=== PATIENT | female | born 1960 | race Caucasian/White ===

== ENCOUNTER 2023-06-23 18:43 | Inpatient (IN) | payer BC ==
[2023-06-23 19:19] LABS: BASOPHILS % (AUTO) 0.2 %; EOSINOPHILS # (AUTO) 0.1 10^3/uL (0.0-0.7); EOSINOPHILS % (AUTO) 0.4 %; HCT - HEMATOCRIT 37.4 % (37.0-47.0); HGB - HEMOGLOBIN 12.3 g/dL (12.0-16.0); LYMPHOCYTES # (AUTO) 1.9 10^3/uL (1.5-3.5); LYMPHOCYTES % (AUTO) 14.5 %; MEAN CORPUSCULAR HEMOGLOBIN 28.5 pg (27.0-31.0); MEAN CORPUSCULAR HGB CONC 32.9 g/dL (32.0-36.0); MEAN CORPUSCULAR VOLUME 86.6 fL (81.0-99.0); MEAN PLATELET VOLUME 9.8 fL (7.9-10.8); MONOCYTES # (AUTO) 0.8 10^3/uL (0.0-1.0); MONOCYTES % (AUTO) 6.4 %; NEUTROPHILS % (AUTO) 78.3 %; PLT - PLATELET COUNT 279 10^3/uL (130-450); RED BLOOD COUNT 4.32 10^6/uL (4.20-5.40); RED CELL DISTRIBUTION WIDTH 13.2 % (12.0-15.0); WHITE BLOOD COUNT 12.8 x10^3/uL (4.8-10.8)
[2023-06-23 19:41] LABS: ALBUMIN 4.4 g/dL (3.2-5.5); ALBUMIN/GLOBULIN RATIO 1.3 (1.0-2.2); BILIRUBIN,TOTAL 0.7 mg/dL (0.2-1.0); CALCIUM 10.1 mg/dL (8.5-10.3); CREATININE 0.9 mg/dL (0.6-1.3); POTASSIUM 3.8 mmol/L (3.5-4.5); TOTAL PROTEIN 7.7 g/dL (6.4-8.9)
[2023-06-23 19:42] LABS: TROPONIN I HIGH SENSITIVITY 5.7 ng/L (2.3-14.8)
--- NOTE | 2023-06-23 19:55 | XRAY Report ---
PROCEDURE: Chest 1V INDICATIONS: Chest pain TECHNIQUE: One view of the chest was acquired. COMPARISON: None. FINDINGS: Surgical changes and devices: None. Lungs and pleura: No pleural effusions or pneumothorax. Lungs are clear. Mediastinum: Mediastinal contours appear normal. Heart size is normal. Bones and chest wall: No suspicious bony lesions. Overlying soft tissues appear unremarkable. IMPRESSION: No acute cardiopulmonary process. Reviewed by: James Harry MD on 06/23/2023 7:54 PM PDT Approved by: James Harry MD on 06/23/2023 7:54 PM PDT Station ID: [id number]
--- NOTE | 2023-06-23 20:17 | ED Physician Documentation ---
History of Present Illness - Stated complaint Stated Complaint: UPPER ABD PX/BODY ACHES - Chief complaint Chief Complaint: General - Additonal information Additional information: Patient 62-year-old female presenting to the emergency department with abdominal and back pain. Reports pain began initially earlier this morning. Has had similar episode pain in the past. Reports an episode of pancreatitis that was attributed to gallstones a few years ago and has had her gallbladder removed. Infrequent drinker. Is a type II diabetic. Review of Systems Constitutional: reports: Weight Loss. denies: Fever Eyes: denies: Loss of vision Ears: denies: Loss of hearing Nose: denies: Rhinorrhea / runny nose Throat: denies: Dental pain / toothache Cardiac: denies: Chest pain / pressure Respiratory: denies: Dyspnea GI: reports: Abdominal Pain, Nausea : denies: Dysuria Skin: denies: Rash Musculoskeletal: denies: Neck pain PD PAST MEDICAL HISTORY - Past Medical History Past Medical History: Yes Cardiovascular: Hypertension Endocrine/Autoimmune: Type 1 diabetes GI: GERD, Pancreatitis : Kidney stones - Past Surgical History Past Surgical History: Yes General: Cholecystectomy - Allergies Allergies/Adverse Reactions: Allergies Allergy/AdvReac Type Severity Reaction Status Date / Time rosuvastatin [From Crestor] Allergy Unknown Verified 06/23/23 18:57 - Social History Does the pt smoke?: No Smoking Status: Former smoker Does the pt drink ETOH?: No Does the pt have substance abuse?: No PD ED PE NORMAL - General General: Alert and oriented X 3, No acute distress - HEENT HEENT: Atraumatic - Neck Neck: Supple, no meningeal sign - Cardiac Cardiac: RRR - Respiratory Respiratory: No respiratory distress - Abdomen Abdomen: No: Non tender (Epigastric tenderness) - Back Back: No CVA TTP, No spinal TTP - Derm Derm: Normal color - Extremities Extremities: No deformity - Neuro Neuro: Alert and oriented X 3, 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, No motor deficit, Normal speech Results - Vitals Vitals: Vital Signs - 24 hr 06/23/23 06/23/23 06/23/23 18:48 19:23 20:50 Temperature 36.6 C Heart Rate 115 H 108 H 108 H Respiratory 20 18 18 Rate Blood Pressure 138/76 H 147/86 H O2 Saturation 99 100 95 06/23/23 23:00 Temperature Heart Rate 106 H Respiratory 18 Rate Blood Pressure 147/93 H O2 Saturation 97 Oxygen O2 Source Room air - Labs Labs: Laboratory Tests 06/23/23 06/23/23 06/23/23 19:13 19:13 19:13 WBC 12.8 H RBC 4.32 Hgb 12.3 Hct 37.4 MCV 86.6 MCH 28.5 MCHC 32.9 RDW 13.2 Plt Count 279 MPV 9.8 Neut # (Auto) 10.0 H Lymph # (Auto) 1.9 Sully # (Auto) 0.8 Eos # (Auto) 0.1 Baso # (Auto) 0.0 Absolute Nucleated RBC 0.00 Nucleated RBC % 0.0 Sodium 135 Potassium 3.8 Chloride 99 L Carbon Dioxide 29 Anion Gap 7.0 BUN 25 H Creatinine 0.9 Estimated GFR (MDRD) 64 L Glucose 382 H Calcium 10.1 Total Bilirubin 0.7 AST 559 H ALT 317 H Alkaline Phosphatase 170 H Troponin I High Sens 5.7 Total Protein 7.7 Albumin 4.4 Globulin 3.3 Albumin/Globulin Ratio 1.3 Triglycerides Cholesterol LDL Cholesterol Direct LDL Cholesterol, Calc VLDL Cholesterol HDL Cholesterol LDL/HDL Ratio dLDL/HDL Ratio Cholesterol/HDL Ratio Lipase 2237 H Ethyl Alcohol < 10.0 06/23/23 19:13 WBC RBC Hgb Hct MCV MCH MCHC RDW Plt Count MPV Neut # (Auto) Lymph # (Auto) Sully # (Auto) Eos # (Auto) Baso # (Auto) Absolute Nucleated RBC Nucleated RBC % Sodium Potassium Chloride Carbon Dioxide Anion Gap BUN Creatinine Estimated GFR (MDRD) Glucose Calcium Total Bilirubin AST ALT Alkaline Phosphatase Troponin I High Sens Total Protein Albumin Globulin Albumin/Globulin Ratio Triglycerides 446 H Cholesterol 212 H LDL Cholesterol Direct 121 LDL Cholesterol, Calc Not Reportable VLDL Cholesterol Not Reportable HDL Cholesterol 39 L LDL/HDL Ratio Not Reportable dLDL/HDL Ratio 3.1 Cholesterol/HDL Ratio 5.4 Lipase Ethyl Alcohol PD Medical Decision Making - ED course Complexity details: considered differential, d/w patient ED course: Patient 62-year-old female presenting to the emergency department with chief complaint abdominal pain. Pain ongoing x 1 day. Subsequently identified as having acute pancreatitis with lipase greater than 2400. Elevation in LFTs is noted but no elevation in bilirubin. Given medication for pain control, IV hydration. A CT abdomen pelvis obtained demonstrates some possible choledocholithiasis although patient has had her gallbladder removed. Ultrasonography does not show any clear obstruction though does demonstrate mild dilatation to the gallbladder. Her care is discussed with the hospitalist service who graciously agreed to hospitalize for further evaluation and treatment. Departure - Departure Disposition: 67 [facility] DC/[facility] Clinical Impression: Acute pancreatitis Forms: PCP List
[2023-06-23] MEDS: HYDROmorphone 1 MG/ML CARPUJECT IVP STA ×2 (20:21→22:45)
[2023-06-23] MEDS: ONDANSETRON 4 MG/2 ML VIAL IVP STA (20:21)
[2023-06-23] MEDS: SODIUM CHLORIDE 0.9% 1,000 ML IV STA (20:22)
[2023-06-23 20:47] LABS: CHOL/HDL RATIO 5.4 (<4.4); CHOLESTEROL 212 mg/dL; HDL CHOLESTEROL 39 mg/dL; TRIGLYCERIDES 446 mg/dL (48-352)
[2023-06-23] MEDS ORDERED: iohexoL-300 100 ML VIAL ONE (20:58)
[2023-06-23 21:03] LABS: LDL CHOLESTEROL,DIRECT 121 mg/dL (75-193); LDLD/HDL RATIO 3.1 (<4.4)
[2023-06-23] MEDS: iohexoL-300 100 ML VIAL IVP ONE (21:24)
--- NOTE | 2023-06-23 22:46 | CT Report ---
PROCEDURE: Abdomen/Pelvis W INDICATIONS: abd pain, pancreatitis, s/p Cholecystectomy, Wt ls CONTRAST: omni 300,100mls TECHNIQUE: After the administration of intravenous contrast, a CT scan of the abdomen and pelvis was performed. Images were recorded and evaluated at appropriate window settings. Reformats: coronal and sagittal. F or radiation dose reduction, the following was used: automated exposure control, adjustment of mA and /or kV according to patient size. COMPARISON: None. FINDINGS: Image quality: Diagnostic. Lower chest: Unremarkable. Liver: Mild hepatomegaly and hepatic steatosis. No solid mass. Gallbladder and biliary tree: Gallbladder is surgically absent. Question small intraductal stones in the common bile duct. Mild biliary dilation. Spleen: No splenomegaly. Pancreas: No pancreatic ductal dilation. Adrenals: No adrenal nodule. Kidneys and ureters: No hydronephrosis. No renal cystic lesion which requires follow up. No solid mas s. Mild perinephric stranding. Bilateral retroperitoneal lipomatosis. Stomach, bowel and peritoneum: No bowel distension. No pathologic free fluid. Scattered colonic diver ticula. No acute diverticulitis. Lymph nodes: No central or retroperitoneal adenopathy. Vessels: No infrarenal aortic aneurysm. PELVIS Reproductive organs: Unremarkable. Bladder: No abnormal wall thickening, accounting for underdistention. Pelvic lymph nodes: No pelvic adenopathy by size criteria. Bones: No aggressive osseous abnormality. Other: No significant ventral or inguinal hernia. There is a subcutaneous stranding anterior abdomina l wall. IMPRESSION: 1. Cholelithiasis. Question small common bile duct stones. Mild biliary dilation. Consider MRCP for f ollow-up evaluation. 2. Mild hepatomegaly and hepatic steatosis. 3. Pancreas has normal CT appearance, which does not exclude clinical pancreatitis. 4. Diverticulosis without diverticulitis. Reviewed by: Cameron Haddad MD on 06/23/2023 10:45 PM PDT Approved by: Cameron Haddad MD on 06/23/2023 10:45 PM PDT Station ID: [id number]
--- NOTE | 2023-06-24 00:16 | Ultrasound Report ---
PROCEDURE: Abdomen Limited INDICATIONS: RUQ, abd pain TECHNIQUE: Real-time focused scanning was performed of the abdomen, with image documentation. COMPARISONS: CT abdomen and pelvis, 06/23/2023. FINDINGS: Liver: Liver is normal in size and demonstrates diffuse increased echotexture. Gallbladder: Surgically absent. Biliary ducts: Intrahepatic bile ducts are non-dilated. Extrahepatic bile duct caliber measures 10. 3 mm. Normal is 6-7 mm or less in diameter, or 10 mm or less post-cholecystectomy. Pancreas: Visualized portions of the pancreas are sonographically normal. Right kidney: Normal in size and echotexture. Right kidney measures 11.9 cm long. No hydronephrosis or nephrolithiasis. No solid masses. There is a 1.4 cm simple appearing cyst in the inferior pole of the right kidney. No complex renal cystic lesions which require follow-up. Aorta: Visualized aorta is normal in caliber at less than 3 cm. IVC: Intrahepatic inferior vena cava is patent. Miscellaneous: No free abdominal fluid. IMPRESSION: 1. Diffuse increased hepatic echotexture consistent with hepatic fatty infiltration. Other hepatocell ular disease could have a similar appearance. Please correlate with liver function tests. 2. Dilated common bile duct. No definitive intraductal stones. Reviewed by: Cameron Haddad MD on 06/24/2023 12:15 AM PDT Approved by: Cameron Haddad MD on 06/24/2023 12:15 AM PDT Station ID: [id number]
[2023-06-24] MEDS ORDERED: oxyCODONE 5 MG TABLET PO PRN (01:08)
[2023-06-24] MEDS ORDERED: ONDANSETRON 4 MG/2 ML VIAL IVP PRN (01:08)
[2023-06-24] MEDS ORDERED: PROCHLORPERAZINE 10 MG/2 ML VIAL IVP PRN (01:08)
[2023-06-24] MEDS ORDERED: hydrALAZINE INJ 20 MG/ML VIAL IVP PRN (01:15)
--- NOTE | 2023-06-24 01:21 | HISTORY & PHYSICAL EXAMINATION ---
Chief Complaint - Chief Complaint Chief Complaint: nausea and epigastric abdominal pain radiating to the back History of Present Illness - Admitted From Admitted From:: ED - History Obtained From Records Reviewed: EMR History obtained from: ED staff, patient, and Exam Limitations: tele medicine - History of Present Illness HPI Comment/Other: 62F c prior hx of gallstone pancreatitis s/p cholecystectomy, DM2, HTN, and HLD who presents to the ED reporting epigastric abdominal pain with nausea that started this morning. Patient reports pain radiating to the back. Pain similar to prior gallstone pancreatitis. she reports MRCP workup prior to discharge. No new medications. No alcohol. No trauma. No fever. no chills. No chest pain. No SOB. No palpitation. History - Past Medical History Cardiovascular: reports: Hypertension Endocrine/Autoimmune: reports: Type 1 diabetes GI: reports: GERD, Pancreatitis : reports: Kidney stones - Past Surgical History General: reports: Cholecystectomy Meds/Allgy - Allergies Allergies/Adverse Reactions: Allergies Allergy/AdvReac Type Severity Reaction Status Date / Time rosuvastatin [From Crestor] Allergy Unknown Verified 06/23/23 18:57 Review of Systems - Other Findings Other Findings: negative unless mentioned differently before Exam - Vital Signs Reviewed Vital Signs: Yes Vital Signs: Vital Signs x48h Temp Pulse Resp BP Pulse Ox 06/23/23 23:00 106 H 18 147/93 H 97 06/23/23 20:50 108 H 18 147/86 H 95 06/23/23 19:23 108 H 18 100 06/23/23 18:48 36.6 C 115 H 20 138/76 H 99 - Physical Exam General Appearance: positive: No acute distress Eyes Bilateral: positive: Normal inspection ENT: positive: ENT inspection nml Neck: positive: Nml inspection Respiratory: positive: No respiratory distress Abdomen: positive: Tenderness Skin: positive: Color nml Extremities: positive: Non-tender Neurologic/Psychiatric: positive: Oriented x3, CN's nml (2-12) Conclusion/Plan - Problem List (1) Acute pancreatitis Conclusion/Plan: unclear cause specifically. possibly hypertriglyeridemia. managed conser vatively with sxs control - pain meds, iv fluid, clears. recheck LFTs and Lipase and if rising then will need to consider MRCP to rule out retained stone. Qualifiers: Pancreatitis type: unspecified pancreatitis type Acute pancreatitis complication: unspecified Qualified Code(s): K85.90 - Acute pancreatitis without necrosis or infection, unspecified (2) IDDM (insulin dependent diabetes mellitus) Conclusion/Plan: home home meds. pharmacy to confirm home meds / regimen. patient current reporting basalgar 15units BID. will adjust dosage to account for clears status. additional coverage with SSI and monitor with accucheck. (3) Hypertension Conclusion/Plan: controlled. holding home meds until pharmacy can identify them. prn hydralazine while awaiting home med rec (4) Hyperlipidemia Conclusion/Plan: managed. pharmacy to confirm home meds. consider restarting if LFTs resolve. - Lab Results Lab results reviewed: Yes Fish Bones: 06/23/23 19:13 06/23/23 19:13 - Diagnostic Imaging Results Diagnostic Imaging Results: positive: Final report reviewed Core Measures - Issues Hospital Issues and Management Plan: The patient consented to receive this telemedicine service, which I performed via live two-way audiovisual equipment. The patient is at ([facility]) and I am physically in [facility]. A nurse assisted me in the visit. - DVT/VTE - Prophylaxis VTE/DVT Device ordered at admit?: Yes Telemedicine Consult Details - Provider Location & Consult Time Telemedicine consultation conducted via videoconferencing?: Yes List names and roles of persons who participated in consult:: ED staff, patient, and Telemedicine provider location:: [facility] Time Telemedicine consult began:: 00:51 Time Telemedicine consult completed:: 01:46
[2023-06-24] MEDS: HYDROmorphone 0.5 MG/0.5 ML SYRINGE IVP PRN (02:22)
[2023-06-24] MEDS: SODIUM CHLORIDE FLUSH 0.9% 10 ML SYRINGE IVP PRN (02:22)
[2023-06-24] MEDS: SODIUM CHLORIDE 0.9% 1,000 ML IV SCH (02:23)
[2023-06-24] MEDS: INSULIN GLARGINE-YFGN 300 UNIT/3 ML PEN SUBQ SCH (02:25)
[2023-06-24 06:03] LABS: HCT - HEMATOCRIT 32.2 % (37.0-47.0); MEAN CORPUSCULAR HEMOGLOBIN 28.9 pg (27.0-31.0); MEAN CORPUSCULAR HGB CONC 34.2 g/dL (32.0-36.0); MEAN CORPUSCULAR VOLUME 84.7 fL (81.0-99.0); MEAN PLATELET VOLUME 10.3 fL (7.9-10.8); RED BLOOD COUNT 3.8 10^6/uL (4.20-5.40); RED CELL DISTRIBUTION WIDTH 13.3 % (12.0-15.0); WHITE BLOOD COUNT 8.7 x10^3/uL (4.8-10.8)
[2023-06-24 06:21] LABS: ALBUMIN/GLOBULIN RATIO 1.3 (1.0-2.2); BILIRUBIN,TOTAL 0.6 mg/dL (0.2-1.0); CALCIUM 9.5 mg/dL (8.5-10.3); CREATININE 0.5 mg/dL (0.6-1.3); MAGNESIUM 1.4 mg/dL (1.7-2.3); POTASSIUM 3.5 mmol/L (3.5-4.5)
[2023-06-24] MEDS: INSULIN LISPRO 300 UNIT/3 ML PEN SUBQ SCH (08:46)
[2023-06-24] MEDS: SODIUM CHLORIDE FLUSH 0.9% 10 ML SYRINGE IVP SCH (08:48)
[2023-06-24 09:44] LABS: ESTIMATED AVERAGE GLUCOSE 200 mg/dL (70-100); HEMOGLOBIN A1c% 8.6 % (4.27-6.07)
[2023-06-24] MEDS ORDERED: GADOTERATE MEGLUMINE 7.5 MMOL/15 ML VIAL ONE (13:38)
--- NOTE | 2023-06-24 16:22 | PHARMACY PROGRESS NOTE ---
- Best Possible Medication History Admit Date and Time: 06/24/23 1129 Processed by: Pharmacy Medications reviewed in ED?: No Medication History completed: Yes Patient Interview: Pt unable to participate Secondary Source(s): Physician records, Pharmacy records, Insurance records As the person ultimately responsible for medication therapy, providers are able to order a medication from an existing home medication list in [facility] via the "Reconcile Routine" prior to Confirmation of that medication by software support specialist. Such practice is discouraged except when the physician, in their clinical judgment, deems that a medical need exists for a medication without regard to previous use.
--- NOTE | 2023-06-24 16:35 | MRI Report ---
PROCEDURE: MRI pancreas and MRCP W/WO INDICATIONS: PANCREATITIS CONTRAST: omni 300,100mls TECHNIQUE: Coronal ultra fast SE through the abdomen, axial 2-D spoiled GE in- and [id number], and breath-hold T2 FSE with fat saturation through the biliary system and pancreas. Oblique coronal and axial thin- slice ultra fast SE, radial thick-slab ultra fast SE centered on the extrahepatic bile ducts. Axial T 1 vibe pre and postcontrast. Coronal T1 postcontrast. Restricted diffusion images. COMPARISON: Abdominal ultrasound 06/23/2023. CT abdomen pelvis 06/23/2023 FINDINGS: Image quality: Good. A few sequences are degraded. Attempted repeat of the and out of phase imaging. Gallbladder: Surgically absent. Biliary tree: Nondilated. CBD measures 0.7 cm. No filling defect. Pancreas: No pancreatic ductal dilation. No cyst or mass. No peripancreatic fluid collection. No perry a signal appreciated. T1 signal appears normal. Lung bases and heart: Unremarkable. Liver: No solid mass. Probable steatosis. Spleen: No splenomegaly. Adrenals: No adrenal nodule. Kidneys and ureters: No hydronephrosis. No renal cystic lesion which requires follow up. No solid mas s. Bowel and peritoneum: No bowel distension. No pathologic free fluid. Duodenal diverticulum. Lymph nodes: No central or retroperitoneal adenopathy. Vessels: No infrarenal aortic aneurysm. Bones: No aggressive osseous abnormality. Other: No significant ventral hernia. IMPRESSION: 1. No imaging signs of pancreatitis. No peripancreatic fluid collection. 2. No choledocholithiasis demonstrated. No biliary or pancreatic ductal dilatation. 3. Duodenal diverticulum. Reviewed by: Willard Villavicencio MD on 06/24/2023 4:34 PM PDT Approved by: Willard Villavicencio MD on 06/24/2023 4:34 PM PDT Station ID: [id number]
[2023-06-24] MEDS: GADOTERATE MEGLUMINE 7.5 MMOL/15 ML VIAL IVP ONE (17:17)
[2023-06-24] MEDS: oxyCODONE 5 MG TABLET PO PRN (17:50)
[2023-06-24] MEDS: IBUPROFEN 400 MG TABLET PO PRN (21:12)
--- NOTE | 2023-06-25 06:22 | PROVIDER PROGRESS NOTE ---
Subjective - Prog Note Date Prog Note Date: 06/25/23 Prog Note Time: 06:20 - Subjective Pt reports feeling: Improved Subjective: she has less pain in abd and no emesis but still w distension and no flatus denies cp, sob. I ordered an MRCP since she has already had gallstone pancreatitis in the past and has had her GB removed. MRCP was without ductal obstruction and no CBD stones. Her lipase was going down yesterday. Started on clears last night and tolerated. No fever. Current Medications - Current Medications Current Medications: Active Medications Hydralazine HCl (Hydralazine Inj 20 Mg/Ml Vial) 10 mg IVP Q6HR PRN PRN Reason: hypertension BP>160 Hydromorphone HCl (Hydromorphone 0.5 Mg/0.5 Ml Syringe) 0.5 mg IVP Q6HR PRN PRN Reason: Pain 8 to 10 Sodium Chloride (Normal Saline 0.9%) 1,000 mls @ 75 mls/hr IV .[id number] [facility] Last Admin: 06/25/23 04:20 Dose: 75 mls/hr Insulin Glargine-yfgn (Insulin Glargine-Yfgn 300 Unit/3 Ml Pen) 7 unit SUBQ BID [facility] Last Admin: 06/24/23 20:47 Dose: 7 unit Insulin Human Lispro (Insulin Lispro 300 Unit/3 Ml Pen) 1 - 5 unit SUBQ 0800,1200,1700,2100 [facility]; Protocol Last Admin: 06/24/23 20:46 Dose: 1 unit Ondansetron HCl (Ondansetron 4 Mg/2 Ml Vial) 4 mg IVP Q6HR PRN PRN Reason: Nausea / Vomiting Oxycodone HCl (Oxycodone 5 Mg Tablet) 10 mg PO Q4HR PRN PRN Reason: Pain 8 to 10 Oxycodone HCl (Oxycodone 5 Mg Tablet) 5 mg PO Q4HR PRN PRN Reason: Pain 5 to 7 Last Admin: 06/25/23 04:19 Dose: 5 mg Prochlorperazine Edisylate (Prochlorperazine 10 Mg/2 Ml Vial) 10 mg IVP Q6HR PRN PRN Reason: Nausea / Vomiting Sodium Chloride (Sodium Chloride Flush 0.9% 10 Ml Syringe) 10 ml IVP PRN PRN PRN Reason: NEEDED PER PROVIDER ORDERS Last Admin: 06/24/23 02:22 Dose: 10 ml Sodium Chloride (Sodium Chloride Flush 0.9% 10 Ml Syringe) 10 ml IVP 0100,0900,1700 [facility] Last Admin: 06/24/23 23:51 Dose: Not Given Atorvastatin Calcium [Lipitor] 80 mg PO DAILY 06/24/23 Clobetasol Propionate 1 applic TOP BID 06/24/23 Hydrocortisone 1% Cream [Hydrocortisone] 1 applic TOP TID 06/24/23 Insulin Glargine [Lantus Solostar] 15 unit SUBQ BID 06/24/23 Liraglutide [Victoza 2-Juan David] 1.8 mg SUBQ DAILY 06/24/23 Losartan Potassium 100 mg PO DAILY 06/24/23 Omeprazole 40 mg PO DAILY 06/24/23 Ondansetron HCl 4 mg PO Q8H PRN 06/24/23 Zolpidem [Ambien] 5 mg PO HS PRN 06/24/23 estradioL vaginal [Estrace vaginal] 1 g VG UD 06/24/23 hydroCHLOROthiazide [Hydrodiuril] 25 mg PO DAILY 06/24/23 metFORMIN [Glucophage] 1,000 mg PO BIDWM 06/24/23 Objective - Vital Signs/Intake & Output Reviewed Vital Signs: Yes Vital Signs: Vital Signs x48h Temp Pulse Resp BP Pulse Ox 06/25/23 04:16 36.5 C 79 18 145/97 H 97 06/24/23 23:55 36.6 C 82 16 136/87 H 96 Intake & Output: Intake & Output 06/22/23 06/23/23 06/24/23 06/25/23 23:59 23:59 23:59 23:59 Intake Total 1000 1100 931.25 Balance 1000 1100 931.25 - Lab Results Fish Bones: 06/24/23 05:28 06/24/23 05:28 Other Labs: Lab Results x24hrs 06/24/23 06/24/23 06/24/23 Range/Units 20:35 16:30 11:31 Sodium (135-145) mmol/L Potassium (3.5-4.5) mmol/L Chloride (101-111) mmol/L Carbon Dioxide (21-32) mmol/L Anion Gap (6-13) BUN (6-20) mg/dL Creatinine (0.6-1.3) mg/dL Estimated GFR (MDRD) (>89) Glucose (74-104) mg/dL POC Whole Bld Glucose 147 H 189 H 170 H (70 - 100) mg/dL Estimat Average Glucose (70-100) mg/dL Hemoglobin A1c % (4.27-6.07) % Calcium (8.5-10.3) mg/dL Magnesium (1.7-2.3) mg/dL Total Bilirubin (0.2-1.0) mg/dL AST (10-42) IU/L ALT (10-60) IU/L Alkaline Phosphatase (42-121) IU/L Total Protein (6.4-8.9) g/dL Albumin (3.2-5.5) g/dL Globulin (2.1-4.2) g/dL Albumin/Globulin Ratio (1.0-2.2) Lipase (11-82) U/L TSH (0.34-5.60) uIU/mL 06/24/23 06/24/23 06/24/23 Range/Units 07:53 05:28 05:28 Sodium 136 (135-145) mmol/L Potassium 3.5 (3.5-4.5) mmol/L Chloride 101 (101-111) mmol/L Carbon Dioxide 28 (21-32) mmol/L Anion Gap 7.0 (6-13) BUN 18 (6-20) mg/dL Creatinine 0.5 L (0.6-1.3) mg/dL Estimated GFR (MDRD) 125 (>89) Glucose 196 H (74-104) mg/dL POC Whole Bld Glucose 207 H (70 - 100) mg/dL Estimat Average Glucose 200 H (70-100) mg/dL Hemoglobin A1c % 8.6 H (4.27-6.07) % Calcium 9.5 (8.5-10.3) mg/dL Magnesium 1.4 L (1.7-2.3) mg/dL Total Bilirubin 0.6 (0.2-1.0) mg/dL AST 296 H (10-42) IU/L ALT 321 H (10-60) IU/L Alkaline Phosphatase 136 H (42-121) IU/L Total Protein 7.0 (6.4-8.9) g/dL Albumin 4.0 (3.2-5.5) g/dL Globulin 3.0 (2.1-4.2) g/dL Albumin/Globulin Ratio 1.3 (1.0-2.2) Lipase 395 H (11-82) U/L TSH 4.00 (0.34-5.60) uIU/mL
[2023-06-25] MEDS: HYDROmorphone 0.5 MG/0.5 ML SYRINGE IVP PRN (08:09)
[2023-06-25 09:05] LABS: BASOPHILS % (AUTO) 0.2 %; EOSINOPHILS # (AUTO) 0.1 10^3/uL (0.0-0.7); EOSINOPHILS % (AUTO) 2.7 %; HCT - HEMATOCRIT 34.3 % (37.0-47.0); HGB - HEMOGLOBIN 11.3 g/dL (12.0-16.0); LYMPHOCYTES # (AUTO) 1.9 10^3/uL (1.5-3.5); LYMPHOCYTES % (AUTO) 37.6 %; MEAN CORPUSCULAR HEMOGLOBIN 28.3 pg (27.0-31.0); MEAN CORPUSCULAR HGB CONC 32.9 g/dL (32.0-36.0); MEAN CORPUSCULAR VOLUME 85.8 fL (81.0-99.0); MEAN PLATELET VOLUME 10.2 fL (7.9-10.8); MONOCYTES # (AUTO) 0.4 10^3/uL (0.0-1.0); MONOCYTES % (AUTO) 7.3 %; NEUTROPHILS # (AUTO) 2.7 10^3/uL (1.5-6.6); PLT - PLATELET COUNT 238 10^3/uL (130-450); RED CELL DISTRIBUTION WIDTH 13.1 % (12.0-15.0); WHITE BLOOD COUNT 5.1 x10^3/uL (4.8-10.8)
[2023-06-25 09:21] LABS: ALBUMIN 3.6 g/dL (3.2-5.5); ALBUMIN/GLOBULIN RATIO 1.2 (1.0-2.2); BILIRUBIN,TOTAL 0.6 mg/dL (0.2-1.0); CALCIUM 9.1 mg/dL (8.5-10.3); CREATININE 0.4 mg/dL (0.6-1.3); POTASSIUM 3.6 mmol/L (3.5-4.5); TOTAL PROTEIN 6.5 g/dL (6.4-8.9)
[2023-06-25 16:07] VITALS: BP 152/84; O2SAT 94
--- NOTE | 2023-06-25 16:07 | Discharge Plan ---
Discharge Plan Problem Reviewed?: Yes Disposition: Home, Self Care Condition: Fair Diet: Cardiac (very low fat diet please) Activity Restrictions: Activity as Tolerated Shower Restrictions: No Driving Restrictions: No Health Concerns: You presented to the emergency room with abdominal pain and a previous history of previous pancreatitis from gallstones. You have had your gallbladder removed. In the emergency room labs showed that your pancreatitis returned. The pancreas enzyme of digestions called lipase was 2237 ( normal is 82). We kept you from eating to rest your pancreas and we used intravenous fluids to hydrate you. We gave you intravenous pain medicine and nausea medicine to control your symtpoms. Within 24 hours the lipase was now down to below 200. You have no abdominal pain. No nausea. We fed you normal food on the day of discharge and you tolerated it without any abdominal pain, nausea, diarrhea. We also did an MRCP which is a MRI of the biliary system of your pancreas and liver. The MRCP does not show any gallstones or obstruction in the bile ducts. As such we do not know why you are having pancreatitis. Plan of Treatment: 1. Please see your primary care provider in follow-up in the next 1 to 2 weeks. 2. Your primary care provider may want to refer you to see a indoor landscaper/gardener to get an opinion about why you had recurrent pancreatitis. 3. For the next 2 to 3 weeks I would strongly, strongly, strongly suggest that you do a low-fat diet. You can have grilled meats, rice, vegetables, spaghetti, bread, etc. Just avoid butter, oil, fried foods. Also avoid processed food like potato chips. Assessment: Patient is alert, oriented to person place and time No Smoking: If you smoke, Please STOP! Call for help.
--- NOTE | 2023-06-25 21:30 | DISCHARGE SUMMARY ---
"Discharge Summary Admit Date: 06/24/23 Discharge Date: 06/25/23 Discharging Provider: Val Bynum MD Primary Care Provider: Sonya Alonso MD Code Status: Do Not Attempt Resuscitation Condition at Discharge: Fair Discharge Disposition: 01 Home, Self Care - DIAGNOSES Discharge Diagnoses with Status of Each Condition: 1. Acute pancreatitis 2. History of cholecystectomy 3. Hypertension 4. Hyperlipidemia 5. Type 2 diabetes mellitus, controlled, with complication of proteinuria, with use of long-term insulin - HPI History of Present Illness: 62F c prior hx of gallstone pancreatitis s/p cholecystectomy, DM2, HTN, and HLD who presents to the ED reporting epigastric abdominal pain with nausea that started this morning. Patient reports pain radiating to the back. Pain similar to prior gallstone pancreatitis. she reports MRCP workup prior to discharge. No new medications. No alcohol. No trauma. No fever. no chills. No chest pain. No SOB. No palpitation. History - Past Medical History Cardiovascular: reports: Hypertension Endocrine/Autoimmune: reports: Type 1 diabetes GI: reports: GERD, Pancreatitis : reports: Kidney stones - Past Surgical History General: reports: Cholecystectomy - CONSULTS | PROCEDURES Procedures: Chest x-ray without acute cardiopulmonary process Abdomen pelvis CT with mild hepatomegaly, hepatic steatosis. No solid mass. Gallbladder surgically absent. Question of small intraductal stones in the common bile duct. Mild biliary dilatation. No pancreatic ductal dilatation. Abdominal ultrasound with diffuse increased hepatic echotexture consistent with hepatic fatty infiltration. Dilated common bile duct. No definitive intraductal stones. MRCP without any imaging signs of pancreatitis. No peripancreatic fluid collection. No choledocholithiasis demonstrated. No biliary or pancreatic ductal dilatation. - HOSPITAL COURSE Hospital Course: The patient was placed in observation status but was changed to inpatient status with the anticipation that she would be here for a minimum of 2-3 midnights bec ause of her pancreatitis. She says the last time she was hospitalized it was a prolonged course and took over 8 days before she was able to be discharged. I explained to her that I was worried about common bile duct stones. You can still get those even if you have had your gallbladder taken out. There is suggestion of possible common bile duct stones on CT. Nevertheless MRCP was completely normal. The patient was kept n.p.o. and hydrated with normal saline. She was given IV opioids and IV antiemetics. Initial lipase was 2237. This was on the . On the it was 395. By the morning of June 24 the patient stated she was pain-free. Tentatively looking to eat some food. I sta rted her on clear liquids. Then advance to full liquids for the next meal and by the end of the day she was having a fonseca burger without the bun. No abdominal pain, no nausea. She was quite hungry. As such the patient was stable for discharge. She responded much more quickly than anticipated. She is discharged in stable condition. Her partner and significant other is worried that this is a sign that this patient is getting get prostate cancer. I tried to reassure her as much as I could. Temperature is 36.3, blood pressure 152/84, respiration 16, pulse 79, 94% on room air. She is a 5 foot 1 inch female at 71.5 kg. Neck is supple. Lungs are clear. Regular rate and rhythm. And abdomen that soft, nontender, with normal bowel sounds. No rebound or guarding. I am asking that she follow-up with her primary care provider Dionne Alonso at [facility]. Please ask if she should be referred to GI because of recurrent pancreatitis. I want her to be on a low-fat diet for the next few weeks. Greater than 30 minutes was spent coordinating discharge. This document was made in part using voice recognition software. While efforts are made to proofread this document, sound alike and grammatical errors may occur. - ALLERGIES Allergies/Adverse Reactions: Allergies Allergy/AdvReac Type Severity Reaction Status Date / Time rosuvastatin [From Crestor] Allergy Unknown Verified 06/23/23 18:57 - MEDICATIONS Home Medications: Ambulatory Orders Medication Instructions Recorded Confirmed Atorvastatin Calcium [Lipitor] 80 mg PO DAILY 06/24/23 06/24/23 Clobetasol Propionate 1 applic TOP BID 06/24/23 Hydrocortisone 1% Cream 1 applic TOP TID 06/24/23 [Hydrocortisone] Insulin Glargine [Lantus Solostar] 15 unit SUBQ BID 06/24/23 06/24/23 Liraglutide [Victoza 2-Juan David] 1.8 mg SUBQ DAILY 06/24/23 06/24/23 Losartan Potassium 100 mg PO DAILY 06/24/23 06/24/23 Omeprazole 40 mg PO DAILY 06/24/23 06/24/23 Ondansetron HCl 4 mg PO Q8H PRN 06/24/23 06/24/23 Zolpidem [Ambien] 5 mg PO HS PRN 06/24/23 06/24/23 estradioL vaginal [Estrace vaginal] 1 g VG UD 06/24/23 06/24/23 hydroCHLOROthiazide [Hydrodiuril] 25 mg PO DAILY 06/24/23 06/24/23 metFORMIN [Glucophage] 1,000 mg PO BIDWM 06/24/23 06/24/23 - LABS Result Diagrams: 06/25/23 08:40 06/25/23 08:40"
== END 2023-06-25 18:21 | disposition home or self-care (01) | DRG 440 ==
LOC: ED 18:43 → MS2 06-24 01:08 → OBSVTOIN 06-24 11:29
PROVIDERS: ADMIT Internal Medicine; ATTEND Specialist
DX: K85.90 Acute pancreatitis without necrosis or infection, unspecified (principal); E11.69 Type 2 diabetes mellitus with other specified complication; Z79.4 Long term (current) use of insulin; Z79.84 Long term (current) use of oral hypoglycemic drugs; R80.9 Proteinuria, unspecified; Z90.49 Acquired absence of other specified parts of digestive tract; I10 Essential (primary) hypertension; E78.5 Hyperlipidemia, unspecified
CPT/HCPCS: 36415; 71045; 74177; 74183; 76705; 80053; 80061; 82077; 83036; 83690; 83721; 83735; 84443; 84484; 85025; 85027; 93005; 96374; 96375; 96376; 99284; 99285; A9270; G0378; J1170; J1815; Q9967